=== PATIENT | female | born 1955 | race Caucasian/White ===

== ENCOUNTER 2018-02-21 08:28 | Outpatient (CLI) | payer BC | END 2018-02-21 08:29 | disposition home or self-care (01) | LOC: BICMAMMO 08:28 | PROVIDERS: ATTEND Family Medicine | DX: Z12.31 Encounter for screening mammogram for malignant neoplasm of breast (principal); N64.89 Other specified disorders of breast; Z85.3 Personal history of malignant neoplasm of breast | CPT/HCPCS: 77063; 77067 ==

== ENCOUNTER 2018-03-03 08:46 | Outpatient (CLI) | payer BC | END 2018-03-03 08:47 | disposition home or self-care (01) | LOC: BICMAMMO 08:46 | PROVIDERS: ATTEND Family Medicine | DX: R92.2 Inconclusive mammogram (principal); Z85.038 Personal history of other malignant neoplasm of large intestine | CPT/HCPCS: G0279 ==

== ENCOUNTER 2019-06-13 07:43 | Outpatient (CLI) | payer BC ==
--- NOTE | 2019-06-13 07:57 | RAD ---
Chest 2 views HISTORY: Colon cancer. Nausea vomiting. COMPARISON: 04/02/2015. FINDINGS: Cardiac silhouette and pulmonary vasculature are unremarkable. Mediastinum is midline. No c onfluent airspace consolidation, pneumothorax, or pleural fluid. Degenerative changes of the thoracic spine on the lateral view. IMPRESSION: No active cardiopulmonary abnormalities are demonstrated.
== END 2019-06-13 07:44 | disposition home or self-care (01) ==
LOC: BICRAD 07:43
PROVIDERS: ATTEND Internal Medicine Hematology & Oncology
DX: R05 Cough (principal); C18.9 Malignant neoplasm of colon, unspecified
CPT/HCPCS: 71046

== ENCOUNTER 2019-07-27 07:17 | Outpatient (CLI) | payer BC ==
--- NOTE | 2019-07-27 08:53 | RAD ---
RIGHT WRIST 2 VIEWS: HISTORY: Wrist pain. COMPARISON: None. FINDINGS: No acute fracture or malalignment. Soft tissue unremarkable. IMPRESSION: No acute osseous abnormality. POS: CET
== END 2019-07-27 07:18 | disposition home or self-care (01) ==
LOC: BICRAD 07:17
PROVIDERS: ATTEND Family Medicine
DX: M25.531 Pain in right wrist (principal)

== ENCOUNTER 2020-11-22 09:01 | Outpatient (CLI) | payer BC | END 2020-11-22 09:02 | disposition home or self-care (01) | LOC: BICRAD 09:01 | PROVIDERS: ATTEND Internal Medicine Rheumatology | DX: M25.541 Pain in joints of right hand (principal); M54.5 Low back pain; M47.816 Spondylosis without myelopathy or radiculopathy, lumbar region | CPT/HCPCS: 72100 ==

== ENCOUNTER 2023-06-28 07:50 | Outpatient (CLI) | payer MEDICARE, BC | END 2023-06-28 07:51 | disposition home or self-care (01) | LOC: BICMAMMO 07:50 | PROVIDERS: ATTEND Internal Medicine Hematology & Oncology | DX: Z12.31 Encounter for screening mammogram for malignant neoplasm of breast (principal); Z85.038 Personal history of other malignant neoplasm of large intestine | CPT/HCPCS: 77063; 77067 ==

== ENCOUNTER 2023-11-25 08:01 | Outpatient (CLI) | payer MEDICARE, BC | END 2023-11-25 08:02 | disposition home or self-care (01) | LOC: BICMAMMO 08:01 | PROVIDERS: ATTEND Internal Medicine Rheumatology | DX: Z13.820 Encounter for screening for osteoporosis (principal); M54.50 Low back pain, unspecified; Z78.0 Asymptomatic menopausal state; M47.816 Spondylosis without myelopathy or radiculopathy, lumbar region; M85.89 Other specified disorders of bone density and structure, multiple sites | CPT/HCPCS: 72100; 77080 ==

== ENCOUNTER 2025-02-21 14:30 | Outpatient (CLI) | payer BC, MEDICARE | END 2025-02-21 14:31 | disposition home or self-care (01) | LOC: BICMAMMO 14:30 | PROVIDERS: ATTEND Family Medicine | DX: Z12.31 Encounter for screening mammogram for malignant neoplasm of breast (principal) | CPT/HCPCS: 77063; 77067 ==